=== PATIENT | male | born 1990 ===

== ENCOUNTER 2017-08-07 16:23 | Emergency (ER) | payer MEDICAID ==
[2017-08-07 16:34] VITALS: TEMP 98.4
[2017-08-07] MEDS ORDERED: Naproxen 500 MG TAB PO STA (16:55)
[2017-08-07] MEDS ORDERED: Tdap Vaccine 0.5 ml Vial (10-64 yrs) IM ONE ×2 (16:56→17:05)
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
[2017-08-07] MEDS ORDERED: Naproxen 500 MG TAB PO ONE (17:06)
[2017-08-07 17:35] VITALS: BP 111/67; PULSE 89; RESP 19
[2017-08-07 19:13] VITALS: O2SAT 99
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
== END 2017-08-07 19:15 | disposition home or self-care (01) ==
LOC: H.ER 16:23
DX: S30.810A Abrasion of lower back and pelvis, initial encounter (principal); M54.9 Dorsalgia, unspecified; M25.551 Pain in right hip; W19.XXXA Unspecified fall, initial encounter; Y92.89 Other specified places as the place of occurrence of the external cause